=== PATIENT | male | born 1985 | race Two or more races ===

== ENCOUNTER 2019-03-25 21:44 | Emergency (ER) | payer SELFPAY ==
[2019-03-25] MEDS ORDERED: PANTOPRAZOLE SOD 40 MG IV VIAL IVP ONE (22:05)
[2019-03-25] MEDS ORDERED: METOCLOPRAMIDE 10 MG/2 ML SDV IVP ONE (22:05)
[2019-03-25] MEDS ORDERED: diphenhydrAMINE 50 MG/ML VIAL IVP ONE (22:05)
[2019-03-25] MEDS ORDERED: NS(*) 0.9% 1000 ML BAG 1,000 ML IV ONE ×2 (22:05→23:40)
[2019-03-25] MEDS ORDERED: ONDANSETRON 4 MG/2 ML VIAL IVP ONE (22:05)
[2019-03-25 22:34] LABS: PLATELET COUNT, AUTOMATED 172 K/uL (150-450)
--- NOTE | 2019-03-25 22:56 | ER Report ---
History and Physical Time Seen By MD: 21:55 Hx. of Stated Complaint: PATIENT REPORTS DRINKING TO EXCESS X 3 DAYS, NAUSEA AND VOMITING SINCE YESTERDAY HPI/ROS CHIEF COMPLAINT: Nausea and vomiting HISTORY OF PRESENT ILLNESS: Patient presents after drinking 3 days of hard liquor on vacation. He has had difficulty with alcohol abuse in the past and has actually had to be hospitalized for it before. He presents with recurrent vomiting, some epigastric burning, and persistent nausea. No melena or bright blood per rectum. No past history of surgeries, no past medical history, takes no medications. He denies chest pain, shortness breath, fevers or chills. He did have some scant blood in one of his episodes of vomiting. REVIEW OF SYSTEMS: Constitutional: No fever, no chills. Eyes: No discharge. ENT: No sore throat. Cardiovascular: No chest pain, no palpitations. Respiratory: No cough, no shortness of breath. Gastrointestinal: Negative except history of present illness Genitourinary: No dysuria or hematuria Musculoskeletal: No myalgias Skin: No rashes. Neurological: No headache. Remainder of the 14 system rev: Yes Allergies: Coded Allergies: No Known Drug Allergies (Unverified , 03/25/19) Home Meds Active Scripts Promethazine Hcl (PROMETHAZINE HCL) 25 Mg Tablet, 25 MG PO Q8H for Nausea for 3 Days, #10 TAB Prov:LIGIA MCNAMARA DO 03/26/19 Ondansetron 4 Mg Odt (ONDANSETRON 4 MG ODT) 4 Mg Tab.rapdis, 4 MG PO ONCE for Nausea for 3 Days, #10 TAB Prov:LIGIA MCNAMARA DO 03/26/19 Past Medical/Surgical History No past surgical history, no past medical history. Hx Smoking: No Hx Substance Use Disorder: No Hx Alcohol Use: Yes Constitutional Physical Exam General Appearance: Patient appears miserable and dehydrated. No airway compromise. Eyes: Negative scleral icterus ENT, Mouth: Mucous membranes are moist. Respiratory: There are no retractions, lungs are clear to auscultation. Cardiovascular: Regular rate and rhythm. Intact distal pulses bilaterally Gastrointestinal: Abdomen is soft and non tender, no masses : Negative CVA tenderness bilaterally Neurological: Moves all 4 extremities, GCS 15 Skin: Warm and dry, no rashes. Musculoskeletal: Neck is supple non tender. Extremities are nontender, nonswollen and have full range of motion. DIFFERENTIAL DIAGNOSIS: After history and physical exam differential diagnosis was considered for pancreatitis versus alcoholic gastritis versus cyclical vomiting versus DKA versus Boerhaave syndrome versus Sade-Gregorio tear versus cholecystitis versus hepatitis Medical Decision Making Data Points Laboratory Hematology Test 03/25/19 22:15 White Blood Count 6.9 k/uL (4.5-11.0) Red Blood Count 5.89 M/uL (4.00-5.60) H Hemoglobin 16.8 g/dL (14.0-18.0) Hematocrit 48.3 % (42.0-52.0) Mean Corpuscular Volume 82.1 fL (80.0-96.0) Mean Corpuscular Hemoglobin 28.5 pg (26.0-33.0) Mean Corpuscular Hemoglobin Concent 34.7 g/dL (32.0-36.0) Red Cell Distribution Width 15.0 % (11.5-14.5) H Platelet Count 172 K/uL (150-450) Mean Platelet Volume 8.7 fL (7.2-11.1) Neutrophils (%) (Auto) 55.3 % (39.4-72.5) Lymphocytes (%) (Auto) 39.3 % (17.6-49.6) Monocytes (%) (Auto) 4.7 % (4.1-12.4) Eosinophils (%) (Auto) 0.0 % (0.4-6.7) L Basophils (%) (Auto) 0.7 % (0.3-1.4) Nucleated RBC Relative Count (auto) 0.1 /100WBC Neutrophils # (Auto) 3.8 K/uL (2.0-7.4) Lymphocytes # (Auto) 2.7 K/uL (1.3-3.6) Monocytes # (Auto) 0.3 K/uL (0.3-1.0) Eosinophils # (Auto) 0.0 K/uL (0.0-0.5) Basophils # (Auto) 0.0 K/uL (0.0-0.1) Nucleated RBC Absolute Count (auto) 0.01 K/uL Chemistry Test 03/25/19 22:05 03/25/19 22:15 Sodium Level 142 mmol/L (137-145) Potassium Level 3.4 mmol/L (3.5-5.0) Chloride Level 103 mmol/L (98-107) Carbon Dioxide Level 22 mmol/L (22-30) Blood Urea Nitrogen 13 mg/dl (9-21) Creatinine 0.90 mg/dl (0.66-1.25) Glomerular Filtration Rate Calc > 60.0 Random Glucose 132 mg/dl (75-110) Calcium Level 8.6 mg/dl (8.4-10.2) Total Bilirubin 0.4 mg/dl (0.2-1.3) Aspartate Amino Transf (AST/SGOT) 33 U/L (0-35) Alanine Aminotransferase (ALT/SGPT) 35 U/L (0-56) Alkaline Phosphatase 78 U/L (0-126) Total Protein 8.2 g/dl (6.3-8.2) Albumin 4.6 g/dl (3.5-5.0) Lipase 34 U/L (23-300) Magnesium Level 2.2 mg/dl (1.7-2.2) Urinalysis Test 03/25/19 21:55 Urine Color Yellow Urine Clarity Clear Urine pH 7.0 pH (4.8-9.5) Urine Specific [place] 1.014 Urine Protein Negative mg/dL (NEGATIVE) Urine Glucose (UA) Negative mg/dL (NEGATIVE) Urine Ketones Negative mg/dL (NEGATIVE) Urine Blood Negative (NEGATIVE) Urine Nitrite Negative (NEGATIVE) Urine Bilirubin Negative (NEGATIVE) Urine Urobilinogen Negative mg/dL (0.2-1.9) Urine Leukocyte Esterase Negative (NEGATIVE) Urine RBC <1 /HPF (0-2/HPF) Urine WBC None /HPF (0-5/HPF) Urine Squamous Epithelial Cells None /LPF (</=FEW) Urine Bacteria Negative /HPF (NONE-FEW) Urine Mucus None /HPF (NONE-FEW) ED Course/Re-evaluation ED Course Pt given IVF's, symptomatic care, no lab anormalities that require hopsitalization. He feels much better after care. Stop excess etoh use and f/u with pcp. Decision to Disposition Date: Mar 26, 2019 Decision to Disposition Time: 00:46 Depart Departure Latest Vital Signs Impression: Primary Impression: Alcohol intoxication Additional Impressions: Nausea and vomiting Hypokalemia Condition: Improved Disposition: HOME OR SELF-CARE New Scripts Promethazine Hcl (PROMETHAZINE HCL) 25 Mg Tablet 25 MG PO Q8H for Nausea for 3 Days, #10 TAB Prov: LIGIA MCNAMARA 03/26/19 Ondansetron 4 Mg Odt (ONDANSETRON 4 MG ODT) 4 Mg Tab.rapdis 4 MG PO ONCE for Nausea for 3 Days, #10 TAB Prov: LIGIA MCNAMARA 03/26/19 Patient Instructions: Abuse of Alcohol (ED), Acute Nausea and Vomiting (DC) Additional Instructions: Follow-up in this ER if your symptoms worsen or persist. Problem Qualifiers Primary Impression: Alcohol intoxication Complication of substance-induced condition: uncomplicated Qualified Codes: F10.920 - Alcohol use, unspecified with intoxication, uncomplicated Additional Impressions: Nausea and vomiting Vomiting type: unspecified Vomiting Intractability: non-intractable Qualified Codes: R11.2 - Nausea with vomiting, unspecified LIGIA MCNAMARA DO Mar 25, 2019 22:56
[2019-03-26 00:30] VITALS: BP 105/69
[2019-03-26] MEDS ORDERED: ONDANSETRON 4 MG ODT TH SL ONE (00:50)
[2019-03-26] MEDS ORDERED: PROM-110 PO (00:51)
[2019-03-26] MEDS ORDERED: ONDA4TAB9 PO (00:51)
--- NOTE | 2019-03-26 00:53 | RADIOLOGY IMAGING REPORT ---
FACILITY: [facility] PATIENT NAME: Waldo Thomas : 1985 MR: [id number] V: [id number] EXAM DATE: ORDERING PHYSICIAN: LIGIA MCNAMARA TECHNOLOGIST: [facility] Patient: Waldo Thomas : 1985 Visit/Account:[id number] Date of Sevice: 03/25/2019 CHEST SINGLE AP HISTORY: Shortness of breath. COMPARISON: None available. FINDINGS: Lines/tubes: None. Lungs/pleura: Low lung volumes with crowded bronchovascular markings. No definite consolidation, ple ural effusion, or pneumothorax. Heart: Negative. Mediastinum: Negative. Bony structures/body wall: Negative. IMPRESSION: Low lung volumes with crowded bronchovascular markings, possibly related to technique. No definite acute abnormality. Report Dictated By: Moshe Aguirre MD at 03/26/2019 12:42 AM Report E-Signed By: Moshe Aguirre MD at 03/26/2019 12:45 AM WSN:[id number]
== END 2019-03-26 00:57 | disposition home or self-care (01) ==
LOC: ER 21:50
DX: F10.920 Alcohol use, unspecified with intoxication, uncomplicated (principal); R11.2 Nausea with vomiting, unspecified
CPT/HCPCS: 71045; 81001; 83690; 83735; 85025; 96360; 96361; 96374; 96375; 99284; C9113; J1200; J2405; J2765; J7030; S0119; 82040; 82247; 82310; 82374; 82435; 82565; 82947; 84075; 84132; 84155; 84295; 84450; 84460; 84520

== ENCOUNTER 2019-03-26 14:21 | Emergency (ER) | payer SELFPAY ==
[~2019-03-26 14:21] MED LIST: ONDA4TAB9 PO; PROM-110 PO
--- NOTE | 2019-03-26 14:36 | ER Report ---
History and Physical Time Seen By MD: 14:31 HPI/ROS CHIEF COMPLAINT: Vomiting HISTORY OF PRESENT ILLNESS: Patient was seen last evening around 11 PM with complaint of alcohol use, nausea vomiting and epigastric pain. Workup at that time showed hypokalemia which was replaced. The patient was given IV fluids and antinausea medications and discharged home. He returns today with the same complaints. He admits to hematemesis yesterday, and last vomited this morning, also reporting black colored stool this morning. He complains of severe abdomi nal pain that does not radiate to the back, feels bloated and notes swollen hands and general weakness. His friend in the room adds that the patient has a history of alcohol abuse and they shared a 24 pack of beer 2 days ago. REVIEW OF SYSTEMS: Constitutional: No fever, no chills. Eyes: No discharge. ENT: No sore throat. Cardiovascular: No chest pain, no palpitations. Respiratory: No cough, no shortness of breath. Gastrointestinal: see HPI Musculoskeletal: No back pain. Skin: No rashes. Neurological: No headache. Allergies: Coded Allergies: No Known Drug Allergies (Unverified , 03/25/19) Home Meds Active Scripts Promethazine Hcl (PROMETHAZINE HCL) 25 Mg Tablet, 25 MG PO Q8H for Nausea for 3 Days, #10 TAB Prov:LIGIA MCNAMARA DO 03/26/19 Ondansetron 4 Mg Odt (ONDANSETRON 4 MG ODT) 4 Mg Tab.rapdis, 4 MG PO ONCE for Nausea for 3 Days, #10 TAB Prov:LIGIA MCNAMARA DO 03/26/19 Hx Smoking: No Hx Substance Use Disorder: No Hx Alcohol Use: Yes Constitutional Vital Sign - Last 24 Hours 03/26/19 03/26/19 03/26/19 03/26/19 14:36 14:43 14:51 15:21 Temp 99.3 Pulse 81 84 Resp 20 B/P (MAP) 130/83 (99) 130/83 Pulse Ox 89 94 86 O2 Delivery Room Air 03/26/19 03/26/19 15:29 16:00 B/P (MAP) 117/77 (90) 113/75 (88) Physical Exam General Appearance: The patient is alert, has no immediate need for airway protection and no signs of toxicity. Appears uncomfortable Eyes: Pupils equal and round no pallor or injection. ENT, Mouth: Mucous membranes are dry. Respiratory: There are no retractions, lungs are clear to auscultation. Cardiovascular: Regular rate and rhythm. Gastrointestinal: Abdomen is soft, but non tender to palpation in the upper abdomen and right lower quadrant, no masses, bowel sounds normal. Neurological: Alert and interactive, CN 2-12 intact, intact sensation and 5/5 motor strength of all extremities. Skin: Warm and dry, no rashes. Musculoskeletal: Neck is supple non tender. Extremities are nontender and have full range of motion. Edematous fingers and hands. Medical Decision Making Data Points Result Diagram: 03/26/19 1511 03/26/19 1511 Laboratory Hematology Test 03/26/19 15:11 White Blood Count 5.3 k/uL (4.5-11.0) Red Blood Count 5.29 M/uL (4.00-5.60) Hemoglobin 15.1 g/dL (14.0-18.0) Hematocrit 43.9 % (42.0-52.0) Mean Corpuscular Volume 83.1 fL (80.0-96.0) Mean Corpuscular Hemoglobin 28.6 pg (26.0-33.0) Mean Corpuscular Hemoglobin Concent 34.4 g/dL (32.0-36.0) Red Cell Distribution Width 14.1 % (11.5-14.5) Platelet Count 179 K/uL (150-450) Mean Platelet Volume 9.1 fL (7.2-11.1) Neutrophils (%) (Auto) 57.4 % (39.4-72.5) Lymphocytes (%) (Auto) 36.9 % (17.6-49.6) Monocytes (%) (Auto) 4.9 % (4.1-12.4) Eosinophils (%) (Auto) 0.0 % (0.4-6.7) L Basophils (%) (Auto) 0.8 % (0.3-1.4) Nucleated RBC Relative Count (auto) 0.2 /100WBC Neutrophils # (Auto) 3.1 K/uL (2.0-7.4) Lymphocytes # (Auto) 2.0 K/uL (1.3-3.6) Monocytes # (Auto) 0.3 K/uL (0.3-1.0) Eosinophils # (Auto) 0.0 K/uL (0.0-0.5) Basophils # (Auto) 0.0 K/uL (0.0-0.1) Nucleated RBC Absolute Count (auto) 0.01 K/uL Chemistry Test 03/26/19 15:11 Sodium Level 140 mmol/L (137-145) Potassium Level 3.7 mmol/L (3.5-5.0) Chloride Level 104 mmol/L (98-107) Carbon Dioxide Level 25 mmol/L (22-30) Blood Urea Nitrogen 11 mg/dl (9-21) Creatinine 0.90 mg/dl (0.66-1.25) Glomerular Filtration Rate Calc > 60.0 Random Glucose 100 mg/dl (75-110) Calcium Level 8.2 mg/dl (8.4-10.2) Magnesium Level 2.1 mg/dl (1.7-2.2) Total Bilirubin 0.6 mg/dl (0.2-1.3) Aspartate Amino Transf (AST/SGOT) 27 U/L (0-35) Alanine Aminotransferase (ALT/SGPT) 35 U/L (0-56) Alkaline Phosphatase 67 U/L (0-126) Total Protein 7.8 g/dl (6.3-8.2) Albumin 4.2 g/dl (3.5-5.0) Lipase 37 U/L (23-300) Serology Test 03/26/19 15:11 Helicobacter pylori IgG Antibody Negative (NEGATIVE) Toxicology Test 03/26/19 15:11 Serum Alcohol 127 mg/dl EKG/Imaging Imaging [place] [facility] [place] PATIENT NAME: Waldo Thomas : 1985 MR: [id number] V: [id number] EXAM DATE: [id number] ORDERING PHYSICIAN: RANDY BEAN TECHNOLOGIST: Location: [facility] Patient: Waldo Thomas : 1985 Visit/Account:[id number] Date of Sevice: 03/26/2019 CT ABDOMEN PELVIS W/ CON HISTORY: Hematemesis TECHNIQUE: Axial images were obtained through the abdomen and pelvis with intravenous contrast . One of the following dose optimization techniques was utilized in the performance of this exam: automated exposure control; adjustment of the mA and/or kv according to patient size; or use of iterative reconstruction technique. Specific details can be referenced in the facility's radiology CT exam operational policy. CONTRAST: 75 cc of Isovue-370 COMPARISON: None. FINDINGS: Visualized lung bases: Mild thickening of the distal esophagus. Hepatobiliary: Negative. Spleen: Negative. Adrenals: Indeterminate 1.4 x 1.5 cm left adrenal gland nodule. Right adrenal is normal. Pancreas: Negative. Kidneys/ureters/bladder: Large left inguinal hernia containing a portion of the urinary bladder with the segment of bladder within the hernia sac measuring 7.2 x 3.6 x 3.1 cm... Bowel/peritoneum/mesentery: Normal appendix. Most of the colon is decompressed limiting evaluation. No bowel obstruction, free air or ascites. Vessels: Negative. Lymph nodes: Negative. Pelvic genitourinary: Negative. Bones/body wall: See above Other findings: None significant IMPRESSION: 1. Large left inguinal hernia containing a portion of the urinary bladder with the segment of bladder within the hernia sac measuring 7.2 x 3.6 x 3.1 cm. 2. Mild segmental thickening of the distal esophagus. 3. Most of the colon is decompressed limiting evaluation. 4. 1.4 x 1.5 cm indeterminate left adrenal gland nodule. Please refer to ACR guidelines below ACR recommendations for incidental adrenal nodule with benign features (homogeneous, low density, smooth margins)without definite CT/MRI features of adenoma or other benign lesion: Adrenal nodule 1-4 cm: -Prior imaging available = Obtain prior CT or MRI and issue addendum. If stable for greater than 1 year indicates a benign nodule. If enlarging, recommend biopsy or resection. -No prior imaging and no history of malignancy = Obtain follow up non-contrast CT (adrenal mass protocol) in 1 year. In stable, presume benign. -History of malignancy = Non contrast MRI or non-contrast CT (adrenal mass protocol). If greater than 10 HU, proceed to CT without and with contrast (adrenal washout CT). If still not an adenoma proceed to biopsy. Adrenal nodule >4 cm -No history of malignancy: Consider resection -History of malignancy: PET/CT or biopsy Report Dictated By: Stepan Lawson MD at 03/26/2019 3:59 PM Report E-Signed By: Stepan Lawson MD at 03/26/2019 4:11 PM WSN:[id number] ED Course/Re-evaluation ED Course After history and physical exam was performed differential diagnosis was formulated which includes but is not limited to upper GI bleed, alcoholic pancreatitis, hepatitis, acute cholecystitis, vs alcoholic gastritis Decision to Disposition Date: Mar 26, 2019 Decision to Disposition Time: 16:31 Depart Departure Latest Vital Signs Vital Signs Date Time Temp Pulse Resp B/P (MAP) Pulse Ox O2 Delivery O2 Flow Rate FiO2 03/26/19 16:00 113/75 (88) 03/26/19 15:21 86 03/26/19 14:51 84 03/26/19 14:43 99.3 20 Room Air Impression: Primary Impression: Alcohol intoxication Additional Impression: Inguinal hernia Condition: Improved Disposition: HOME OR SELF-CARE Referrals: JUANPABLO ALONSO Patient Instructions: Acute Nausea and Vomiting (ED), Diet for Stomach Ulcers and Gastritis (ED), Gastritis (DC), Inguinal Hernia (ED) Additional Instructions: Continue your outpatient medicines as prescribed Make a follow-up appointment with Dr. Sonny Alonso for evaluation and scheduling of left inguinal hernia repair. Discontinue drinking alcohol. You may take regular strength Tylenol one to 2 tablets every 6 hours as needed for hand cramping and pain. Neuro CT scan today showed a small cyst on one of your adrenal glands, it is recommended that you get a repeat CT scan in 1 year to make sure that it is not enlarging. Problem Qualifiers Primary Impression: Alcohol intoxication Complication of substance-induced condition: uncomplicated Qualified Codes: F10.920 - Alcohol use, unspecified with intoxication, uncomplicated Additional Impression: Inguinal hernia Obstruction and gangrene presence: without obstruction or gangrene Laterality: unilateral Recurrence: not specified as recurrent Qualified Codes: K40.90 - Unilateral inguinal hernia, without obstruction or gangrene, not specified as recurrent RANDY BEAN MD Mar 26, 2019 14:36
[2019-03-26] MEDS ORDERED: NS(*) 0.9% 1000 ML BAG 1,000 ML IV ONE (14:44)
[2019-03-26] MEDS ORDERED: THIAMINE HCL 200 MG/2 ML INJ IVP ONE (15:10)
[2019-03-26] MEDS ORDERED: PANTOPRAZOLE SOD 40 MG IV VIAL IVP ONE (15:25)
[2019-03-26] MEDS ORDERED: ONDANSETRON 4 MG/2 ML VIAL IVP ONE (15:25)
[2019-03-26 15:27] LABS: PLATELET COUNT, AUTOMATED 179 K/uL (150-450)
[2019-03-26] MEDS ORDERED: IOPAMIDOL 76% 100 ML INFUS BTL 100 ML ONE (15:46)
--- NOTE | 2019-03-26 16:20 | RADIOLOGY IMAGING REPORT ---
FACILITY: [facility] PATIENT NAME: Waldo Thomas : 1985 MR: [id number] V: [id number] EXAM DATE: ORDERING PHYSICIAN: RANDY BEAN TECHNOLOGIST: Location[place] [facility] [place] Patient: Waldo Thomas : 1985 Visit/Account:[id number] Date of Sevice: 03/26/2019 CT ABDOMEN PELVIS W/ CON HISTORY: Hematemesis TECHNIQUE: Axial images were obtained through the abdomen and pelvis with intravenous contrast . One of the following dose optimization techniques was utilized in the performance of this exam: automate d exposure control; adjustment of the mA and/or kv according to patient size; or use of iterative rec onstruction technique. Specific details can be referenced in the facility's radiology CT exam operati onal policy. CONTRAST: 75 cc of Isovue-370 COMPARISON: None. FINDINGS: Visualized lung bases: Mild thickening of the distal esophagus. Hepatobiliary: Negative. Spleen: Negative. Adrenals: Indeterminate 1.4 x 1.5 cm left adrenal gland nodule. Right adrenal is normal. Pancreas: Negative. Kidneys/ureters/bladder: Large left inguinal hernia containing a portion of the urinary bladder with the segment of bladder within the hernia sac measuring 7.2 x 3.6 x 3.1 cm... Bowel/peritoneum/mesentery: Normal appendix. Most of the colon is decompressed limiting evaluation. No bowel obstruction, free air or ascites. Vessels: Negative. Lymph nodes: Negative. Pelvic genitourinary: Negative. Bones/body wall: See above Other findings: None significant IMPRESSION: 1. Large left inguinal hernia containing a portion of the urinary bladder with the segment of bladder within the hernia sac measuring 7.2 x 3.6 x 3.1 cm. 2. Mild segmental thickening of the distal esophagus. 3. Most of the colon is decompressed limiting evaluation. 4. 1.4 x 1.5 cm indeterminate left adrenal gland nodule. Please refer to ACR guidelines below ACR recommendations for incidental adrenal nodule with benign features (homogeneous, low density, smo oth margins)without definite CT/MRI features of adenoma or other benign lesion: Adrenal nodule 1-4 cm: -Prior imaging available = Obtain prior CT or MRI and issue addendum. If stable for greater than 1 ye ar indicates a benign nodule. If enlarging, recommend biopsy or resection. -No prior imaging and no history of malignancy = Obtain follow up non-contrast CT (adrenal mass christie col) in 1 year. In stable, presume benign. -History of malignancy = Non contrast MRI or non-contrast CT (adrenal mass protocol). If greater than 10 HU, proceed to CT without and with contrast (adrenal washout CT). If still not an adenoma proceed to biopsy. Adrenal nodule >4 cm -No history of malignancy: Consider resection -History of malignancy: PET/CT or biopsy Report Dictated By: Stepan Lawson MD at 03/26/2019 3:59 PM Report E-Signed By: Stepan Lawson MD at 03/26/2019 4:11 PM WSN:[id number]
[2019-03-26 16:30] VITALS: BP 120/79
== END 2019-03-26 16:54 | disposition home or self-care (01) ==
LOC: ER 14:33
DX: F10.920 Alcohol use, unspecified with intoxication, uncomplicated (principal); K40.90 Unilateral inguinal hernia, without obstruction or gangrene, not specified as recurrent; K92.0 Hematemesis
CPT/HCPCS: 36415; 74177; 80320; 83690; 83735; 85025; 86677; 86850; 86900; 86901; 96361; 96374; 96375; 99284; C9113; J2405; J3411; J7030; Q9967; 82040; 82247; 82310; 82374; 82435; 82565; 82947; 84075; 84132; 84155; 84295; 84450; 84460; 84520